=== PATIENT | female | born 1980 | race Caucasian/White ===

== ENCOUNTER 2017-09-23 23:32 | Observation (INO) ==
[2017-09-24] MEDS ORDERED: *HR* Labetalol 100 MG/20 ML MDV IVP ONE (00:16)
--- NOTE | 2017-09-24 00:25 | Emergency Department Note ---
Disposition Clinical Impression: Hypertensive urgency Disposition: Admitted As Inpatient Condition: Good General Adult HPI - General Chief complaint: ED Dizziness Stated complaint: HTN Time Seen by Provider: 09/23/17 23:42 Source: patient Mode of arrival: private vehicle Limitations: no limitations Nursing Notes Reviewed: Yes Vital Signs Reviewed: Yes - History of Present Illness HPI Narrative: 36-year-old female prior history of hypertension off her medications for one month who presents to the ER due to dizziness, nausea. Patient states that she is in between physicians and has not had her medications. She got a new blood pressure cuff today and was checking her blood pressure and noticed that it was over 200 systolic at home. States she started feeling dizzy and having headaches. Also reports nausea during that time. No chest pain or shortness of breath. Unsure what medications she is supposed to be on. No other complaints. Pt Subjective Complaint: Dizziness, high blood pressure, nausea Pain Scale: 0 - Related Data Allergies Allergy/AdvReac Type Severity Reaction Status Date / Time No Known Allergies Allergy Verified 09/23/17 23:33 Review of Systems: As Per HPI Past Medical History - Past Medical History Attestation: Yes The following information was validated with the patient. Source: patient Medical history: Reports: hypertension Psychiatric history: Reports: depression - Social History Smoking Status: Former smoker Smokeless Tobacco Status: No Alcohol use: Reports: none Drug use: Reports: none Physical Exam - General Limitations: no limitations General appearance: alert, in no apparent distress - Head Head exam: atraumatic, normocephalic - Eye Eye exam: Present: normal appearance - ENT ENT exam: normal exam - Neck Neck exam: Present: normal inspection - Chest Chest inspection: Present: normal inspection, symmetric chest wall rise - Respiratory Respiratory exam: Present: normal lung sounds bilaterally - Cardiovascular Cardiovascular exam: Present: normal rhythm, tachycardia, normal heart sounds - Abdominal Exam Abdominal exam: Present: soft, Non-Tender. Absent: tenderness - Extremities Exam Extremities exam: Present: normal inspection, full ROM - Expanded Upper Extremity Exam Shoulder exam: Present: normal inspection, full ROM Arm exam: Present: normal inspection, full ROM Elbow exam: Present: normal inspection, full ROM Forearm/Wrist exam: Present: normal inspection, full ROM Hand exam: Present: normal inspection, full ROM - Expanded Lower Extremity Exam Hip/Pelvis exam: Present: normal inspection, full ROM Upper leg exam: Present: normal inspection, full ROM Knee exam: Present: normal inspection, full ROM Lower leg exam: Present: normal inspection, full ROM Ankle exam: Present: normal inspection, full ROM Foot/toe exam: Present: normal inspection, full ROM - Neurological Exam Neurological exam: Present: alert, other (GCS 15. Nonfocal exam. Moves all extremities equally. Follows commands.) - Skin Skin exam: Present: warm, dry Course Course Narrative: Patient seen and examined. Hypertensive here. Plan for CT head, EKG, labs and antihypertensives. - Reevaluation(s) Reevaluation #1: Discussed results of imaging and labs with the patient. Last blood pressure reading 170/100. We will hold on further decreasing her blood pressure. Agreeable with staying. Vital Signs Temperature 98.1 F 09/23/17 23:33 Pulse Rate 101 09/23/17 23:33 Respiratory Rate 20 09/23/17 23:33 Blood Pressure 222/152 09/23/17 23:33 O2 Sat by Pulse Oximetry 97 09/23/17 23:33 Temperature 97.9 F 09/24/17 05:35 Pulse Rate 79 09/24/17 05:35 Respiratory Rate 12 09/24/17 05:35 Blood Pressure 172/130 09/24/17 05:35 O2 Sat by Pulse Oximetry 96 09/24/17 05:35 Oxygen Delivery Oxygen Delivery Room Air Medical Decision Making - [facility] Narrative Medical decision making narrative: 36-year-old female presents with hypotension, dizziness and dyspnea. Off her medications for 1 month. Profoundly hypertensive on arrival. Improved with 10 mg of IV labetalol. EKG is nonischemic. Chest x-ray unremarkable. CT head with no acute abnormality. Troponin and BNP normal. Admitted to the hospitalist service for hypertensive management. - Lab Data Lab results reviewed: Yes I reviewed the patient's lab results. Result diagrams: 09/24/17 00:14 09/24/17 00:14 Lab Results 09/24/17 09/24/17 09/24/17 Range/Units 00:14 00:14 00:14 WBC 8.6 (4.3-11.1) K/mcL RBC 4.27 (3.82-4.97) M/mcL Hgb 13.0 (11.5-15.4) g/dL Hct 38.0 (35.3-44.9) % MCV 89.0 (83.0-100.0) fL MCH 30.4 (28.0-33.3) pg MCHC 34.2 (31.6-35.5) g/dL RDW 13.2 (11.5-14.5) % Plt Count 297 (140-400) K/mcL MPV 11.3 (9.4-12.4) fL Immature Gran % 0.3 (0-4) % Seg Neutrophils % 55.4 % Lymphocytes % 34.7 % Monocytes % 6.0 % Eosinophils % 3.3 % Basophils % 0.3 % Neutrophils # 4.8 (1.6-8.9) K/mcL Lymphocytes # 3.0 (0.6-4.6) K/mcL Monocytes # 0.5 (0.0-1.3) K/mcL Eosinophils # 0.3 (0.0-0.6) K/mcL Basophils # 0.0 (0.0-0.2) K/mcL Sodium 134 L (136-145) mEq/L Potassium 3.7 (3.5-5.1) mEq/L Chloride 103 (98-107) mEq/L Carbon Dioxide 20 L (23-29) mEq/L BUN 13 (6-20) mg/dL Creatinine 0.64 (0.60-1.20) mg/dL Est GFR ( Amer) > 60 (> 60) Est GFR (Non-Af Amer) > 60 (> 60) BUN/Creatinine Ratio 20 (6-26) Glucose 270 H (70-105) mg/dL Calculated Osmolality 288 (280-300) Calcium 9.1 (8.6-10.3) mg/dL Troponin I < 0.03 (< 0.04) ng/mL B-Natriuretic Peptide 13 (Less than 100) pg/mL - Radiology Data Radiology results reviewed: Yes I reviewed the patient's radiology results. Head CT 09/24/17 00:04 IMPRESSION: No acute intracranial abnormality. D/ / Mitchell Duncan MD / Mitchell Duncan MD Interpreting Provider: Mitchell Duncan MD Chest X-Ray 09/24/17 02:05 IMPRESSION: No significant findings in the chest. D/ / Mitchell Duncan MD / Mitchell Duncan MD Interpreting Provider: Mitchell Duncan MD - EKG Data EKG #1 EKG attestation: Yes I reviewed and interpreted this EKG. EKG results narrative: EKG demonstrates sinus rhythm rate 98 bpm. Right axis deviation. Normal intervals. Normal R-wave progression. No gross ST elevations or depressions. No acute ischemic findings. S.B.A.R. - S.B.A.R. Situation: Demographics, MOA Background: Presenting Complaint, Relevant PMH, Meds, & Allergies Assessment: Vital Signs, Course and respsone to treatment, Exam Concerns, Patient/Family Expectation, Pertinant Lab Results Recommendation: Barrier(s) to disposition, Recommendation based on pending studies, treatments, or consults S.B.A.R. Report Given to: Dr. Davidson Attestation Statement - Attestation Attestation: I examined this patient and my medical decision-making was reviewed with the Resident Physician. I agree with the documented findings, disposition and treatment plan as described except to the extent set forth below. Patient has noncompliance with home antihypertensive regimen. IV labetalol be started. Due to profound hypertension the patient be admitted for further management. No evidence of end organ dysfunction
[2017-09-24 00:27] LABS: Basophils % 0.3 %; Eosinophils # 0.3 K/mcL (0.0-0.6); Eosinophils % 3.3 %; Immature Granulocytes % 0.3 % (0-4); Lymphocytes % 34.7 %; Mean Corpuscular HGB Conc 34.2 g/dL (31.6-35.5); Mean Corpuscular Hemoglobin 30.4 pg (28.0-33.3); Mean Platelet Volume 11.3 fL (9.4-12.4); Monocytes # 0.5 K/mcL (0.0-1.3); Neutrophils # 4.8 K/mcL (1.6-8.9); Platelet Count 297 K/mcL (140-400); Red Blood Count 4.27 M/mcL (3.82-4.97); Red Cell Distribution Width 13.2 % (11.5-14.5); Segmented Neutrophils % 55.4 %
[2017-09-24 00:47] LABS: BUN/Creatinine Ratio 20 (6-26); Blood Urea Nitrogen 13 mg/dL (6-20); Calcium 9.1 mg/dL (8.6-10.3); Carbon Dioxide 20 mEq/L (23-29); Chloride 103 mEq/L (98-107); Glucose 270 mg/dL (70-105); Osmolality,Calculated 288 (280-300); Potassium 3.7 mEq/L (3.5-5.1); Sodium 134 mEq/L (136-145); eGFR For African Americans > 60 (> 60); eGFR For Non-African Americans > 60 (> 60)
[2017-09-24 00:48] LABS: Troponin I < 0.03 ng/mL (< 0.04)
[2017-09-24] MEDS ORDERED: Naloxone 0.4 MG/ML INJ IVP PRN (04:03)
--- NOTE | 2017-09-24 04:16 | Internal Med History&Physical ---
<Gio Izquierdo - Last Filed: 09/24/17 04:08> Date of Encounter: 09/24/17 Time of Encounter: 04:08 Internal Medicine - H&P: HPI Chief complaint: elevated blood pressure Admitted From: Home Plans for Post Hospital Care: Home History of present illness: Ms. Beatty is a 36 year old female w/ pmh of HTN, Gestational DM, t2dm, morbid obesity, HLD, poor medication compliance presents with nausea, sick to stomach, and light headedness and found to have a BP of ~200. Patient first developed HTN 12 years ago when she was , and has HTN since. Patient has not had complications from HTN since diagnosis, and has never had BP this elevated before. Patient was at home last night when she started feeling nauseated, she decided to take her blood pressure and found that her SBP was ~200, which brought her to the ED. Patient was previously on 2 blood pressure medications which she cannot recall. Patient stopped going to her PCP quite a while ago. She ran out of her first BP med 2 months ago, and the 2nd BP med is 1 months ago. She was also on metformin and "some kind of cholesterol pill". Patient was seen with . Patient currently is asymptomatic. Patient denies chest pain, blurry vision, numbness/tingling, change in urination pattern, fever , chills. She is unsure if she had SOB. patient does not drink, and quit smoking 12 years ago. Past Med Surg Social Fam HX - Past Medical History Medical history: hypertension Psychiatric history: depression - Past Surgical History Additional surgical history: tubal - Social History Smoking Status: Former smoker Smokeless Tobacco Status: No Alcohol use: none Drug use: none Internal Medicine - H&P: Meds 3 Allergy/AdvReac Type Severity Reaction Status Date / Time No Known Allergies Allergy Verified 09/23/17 23:33 All Systems PM: A 10-system review of systems was performed and is negative for pertinent findings except as documented above in the HPI. - Constitutional Constitutional: weakness, no chills, no fever(s), no night sweats - EENT Eyes: no change in vision, no discharge, no pain, no photophobia Ears: no ear discharge, no ear pain, no tinnitus Nose, mouth and throat: no dysphagia, no nasal discharge, no neck pain, no sore throat - Cardiovascular Cardiovascular ROS IM: no chest pain, no diaphoresis, no dyspnea, no lightheadedness, no palpitations, no syncope - Respiratory Respiratory: no cough, no dyspnea, no wheezing, no excessive phlegm production - Gastrointestinal Gastrointestinal: no abdominal pain, no diarrhea, no hematemesis, no hematochezia, no melena, no nausea, no vomiting - Genitourinary Genitourinary: no change in urinary stream, no dysuria, no flank pain, no hematuria Additional comments: currently on menstrual cycle. - Musculoskeletal Musculoskeletal ROS IM: no numbness, no tingling - Integumentary Integumentary IM: no rash, no unusual bruising - Neurological Neurological ROS: dizziness, weakness, no confusion, no convulsions, no focal weakness, no numbness, no tingling, no tremor(s) - Hematologic/Lymphatic Hematologic/Lymphatic: no easy bruising - Constitutional Vitals: Temp Pulse Resp BP Pulse Ox 98.1 F 87 18 175/129 98 09/23/17 23:33 09/24/17 03:55 09/24/17 03:55 09/24/17 03:55 09/24/17 03:55 General appearance: Present: cooperative, A&O X 3, pleasant, obese, answers questions appropriately - Head Head exam: Present: atraumatic, normocephalic - Eye Eye exam: Present: PERRL, conjuntiva pink, sclera anicteric Pupils: Present: PERRL - Neck Neck exam general surgery: Present: supple, trachea midline. Absent: lymphadenopathy - Respiratory Respiratory exam: Present: CTAB. Absent: accessory muscle use, rales, rhonchi, wheezes - Cardiovascular Cardiovascular exam: Present: RRR. Absent: diastolic murmur, gallop, JVD, rubs , systolic murmur, tachycardia - GI/Abdominal GI/Abdominal exam: Present: normal bowel sounds, soft, no peritoneal signs. Absent: distended, hepatomegaly, mass, splenomegaly, tenderness - Extremities Exam Extremities exam: Present: warm, radial pulses palpable and symmetrical. Absent : calf tenderness, cyanotic, pedal edema - Neurological Exam Neurological exam: Present: alert, CN II-XII intact, oriented X3, no focal deficits. Absent: pronater drift, facial droop, speech deficit - Skin Skin exam: Present: dry, intact Internal Med - H&P Results - Labs CBC & Chem 7: 09/24/17 00:14 09/24/17 00:14 Labs: Short CBC 09/24/17 Range/Units 00:14 WBC 8.6 (4.3-11.1) K/mcL Hgb 13.0 (11.5-15.4) g/dL Hct 38.0 (35.3-44.9) % Plt Count 297 (140-400) K/mcL Neutrophils # 4.8 (1.6-8.9) K/mcL BMP 09/24/17 00:14 Sodium 134 L Potassium 3.7 Chloride 103 Carbon Dioxide 20 L BUN 13 Creatinine 0.64 Glucose 270 H Calcium 9.1 Cardiac Enzymes 09/24/17 Range/Units 00:14 Troponin I < 0.03 (< 0.04) ng/mL - Impressions ITS Impressions Head CT 09/24/17 00:04 IMPRESSION: No acute intracranial abnormality. D/ / Mitchell Duncan MD / Mitchell Duncan MD Interpreting Provider: Mitchell Duncan MD Chest X-Ray 09/24/17 02:05 IMPRESSION: No significant findings in the chest. D/ / Mitchell Duncan MD / Mitchell Duncan MD Interpreting Provider: Mitchell Duncan MD - Assessment and plan (1) Hypertensive urgency Current Visit: Yes Status: Acute Assessment and plan: poor Rx compliance. Patient had symptoms of nausea, dizziness, light headedness , and feeling sick to stomach. Will start ACEI/hctz PO. Goal SBP in 1st 24 hours is 160 or MAP decrease 25% in first 6 hours. will need to setup outpatient PCP. No signs of end organ damage at this point. (2) Hypertension Current Visit: Yes Status: Acute Assessment and plan: see above Qualifiers: Qualified Code(s): I10 - Essential (primary) hypertension (3) Diabetes Current Visit: Yes Status: Acute Assessment and plan: ordered a1c, and urine to screen for protein/glucose. Patient was previously on metformin. BG was elevated on admission. Will need Rx prior to discharge. start low SSI. Qualifiers: Qualified Code(s): E11.9 - Type 2 diabetes mellitus without complications (4) Hyperlipidemia Current Visit: Yes Status: Acute Assessment and plan: patient reports history of high cholesterol and was on a medication. ordered lipid panel. will most likely need Rx for statin prior to discharge. Qualifiers: Qualified Code(s): E78.5 - Hyperlipidemia, unspecified (5) Obesity Current Visit: Yes Status: Acute Assessment and plan: advised patient on benefits of weight loss. too be follow up outpatient Qualifiers: Qualified Code(s): E66.9 - Obesity, unspecified - Time Spent With Patient Total time spent is greater than 50% in coordination of care (as documented) at patient's floor/unit and/or counseling patient: <Megan Cortez - Last Filed: 09/24/17 04:42> Date of Encounter: 09/24/17 Time of Encounter: 04:00 Internal Medicine - H&P: HPI History of present illness: Ms. Beatty is a 36 year old female All Systems PM: A 10-system review of systems was performed and is negative for pertinent findings except as documented above in the HPI. - Constitutional Vitals: Temp Pulse Resp BP Pulse Ox 98.1 F 87 18 175/129 98 09/23/17 23:33 09/24/17 03:55 09/24/17 03:55 09/24/17 03:55 09/24/17 03:55 Internal Med - H&P Results - Labs CBC & Chem 7: 09/24/17 00:14 09/24/17 00:14 - Attending Attestation I examined this patient and my medical decision-making was reviewed with the Resident Physician, Gio Izquierdo. I agree with the documented findings, disposition and treatment plan as described with any changes as documented below. 36-year-old female patient with history of diabetes, hypertension, hyperlipidemia who has not been taking medications for about a month presented to the ER with complaints of nausea, lightheadedness along with some shortness of breath. She reports that she checked her blood pressure at home and was found to have systolic blood pressure greater than 200. She decided to come to the ER. She denies any chest pain. No palpitations. She was previously on 2 different medications for hypertension but has not been taking them for at least a month. She is also not taking her medications for diabetes and hyperlipidemia. Patient is awake and alert. Heart sounds are normal. Breath sounds are normal. No pedal edema. Blood glucose is 270. Chest x-ray shows pulmonary vascular congestion and small left-sided pleural effusion with underlying COPD. Hypertensive urgency: Monitor blood pressure. Start patient on lisinopril, hydrochlorothiazide. We will use intravenous medications if blood pressure remains greater than 200. Target systolic blood pressure of less than 180. Pulmonary congestion and possible CHF. We will get 2-D echocardiogram. Check BNP. We will give IV Lasix for now. Nausea: We will treat symptomatically. - Assessment and plan (1) Hypertensive urgency Current Visit: Yes Status: Acute (2) Hypertension Current Visit: Yes Status: Acute Qualifiers: Qualified Code(s): I10 - Essential (primary) hypertension (3) Diabetes Current Visit: Yes Status: Acute Qualifiers: Diabetes mellitus type: type 2 Diabetes mellitus manager long term care insulin use: without halfway use Diabetes mellitus complication status: with hyperglycemia Qualified Code(s): E11.65 - Type 2 diabetes mellitus with hyperglycemia (4) Hyperlipidemia Current Visit: Yes Status: Acute Qualifiers: Qualified Code(s): E78.5 - Hyperlipidemia, unspecified (5) Obesity Current Visit: Yes Status: Acute Qualifiers: Qualified Code(s): E66.9 - Obesity, unspecified - Time Spent With Patient Total time spent is greater than 50% in coordination of care (as documented) at patient's floor/unit and/or counseling patient:
[2017-09-24] MEDS ORDERED: Dextrose Gel 15 GM/37.5 ML TUBE PO PRN ×2 (04:28)
[2017-09-24] MEDS ORDERED: *HR* Dextrose 50 % in Water (Syg) 50 ML SYRINGE IVP PRN (04:28)
[2017-09-24] MEDS ORDERED: D5% in Water 1,000 ML IVC PRN (04:28)
[2017-09-24] MEDS ORDERED: Furosemide 40 MG/4 ML VIAL IVP ONE (04:42)
[2017-09-24 07:16] LABS: Estimated Average Glucose 258 mg/dl; Hemoglobin A1C 10.6 %
[2017-09-24 08:28] LABS: Bilirubin,Urine Negative (Negative); Blood,Urine Large (Negative); Clarity,Urine Cloudy (Clear); Glucose,Urine (UA) 100 mg/dL (Normal); Ketones,Urine Negative (Negative); Leukocyte Esterase,Urine Trace (Negative); Nitrite,Urine Negative (Negative); PH,Urine 6.5 pH Units (5.0-8.0); Protein,Urine 30 mg/dL (Neg-Trace); Specific Gravity,Urine 1.009 (1.010-1.025); Urobilinogen,Urine Normal (Normal)
[2017-09-24] MEDS: Insulin LISPRO 300 UNITS/3 ML VIAL SQ SCH ×3 (08:33→16:59)
[2017-09-24 08:36] LABS: Color,Urine Red (Yellow)
[2017-09-24 08:37] LABS: RBC,Urine TNTC per hpf (0-3)
--- NOTE | 2017-09-24 09:31 | Event Note ---
Date of Encounter: 09/24/17 Time of Encounter: 09:26 S: Patient had no acute events overnight. BP now systolic 160s. She states that nausea, SOB, and dizziness resolved. She denies fever, chills, dysuria, chest pain, SOB, or abdominal pain. She has no complaints at this time. She wants to find a new PCP in [place], [place]. O: Gen - Awake, alert, well-nourished, no acute distress HEENT - NCAT, PERRLA, EOMI, hearing grossly intact, oropharynx benign CV - RRR, normal S1 and S2, no M/R/G, no BLE edema Resp - Normal WOB, CTAB, no W/R/R GI - Soft, NT/ND, no masses, normal bowel sounds, no HSP Skin - Warm, dry, no rashes/lesions/ulcers Psych - Normal mood and affect, no depression or anxiety A/P: 1) HTN Urgency - BP improved. Continue zestoretic. Monitor vitals closely. SW consulted to set up new PCP follow up. 2) DM Type II - On low dose SSI. Will likely need metformin and PCP follow up at discharge. 3) HLD - Lipid panel in AM. Consider restarting statin.
[2017-09-24] MEDS: *HR* Enoxaparin 40 MG/0.4 ML SYRINGE SQ SCH (16:59)
[2017-09-24] MEDS ORDERED: Insulin LISPRO 300 UNITS/3 ML VIAL SQ SCH (21:00)
[2017-09-25 02:40] LABS: Basophils % 0.4 %; Eosinophils # 0.3 K/mcL (0.0-0.6); Eosinophils % 3.5 %; Hematocrit 40.6 % (35.3-44.9); Hemoglobin 13.7 g/dL (11.5-15.4); Immature Granulocytes % 0.4 % (0-4); Lymphocytes # 3.1 K/mcL (0.6-4.6); Mean Corpuscular HGB Conc 33.7 g/dL (31.6-35.5); Mean Corpuscular Hemoglobin 29.9 pg (28.0-33.3); Mean Corpuscular Volume 88.6 fL (83.0-100.0); Mean Platelet Volume 11.3 fL (9.4-12.4); Monocytes # 0.5 K/mcL (0.0-1.3); Monocytes % 5.7 %; Neutrophils # 4.9 K/mcL (1.6-8.9); Platelet Count 305 K/mcL (140-400); Red Blood Count 4.58 M/mcL (3.82-4.97); Red Cell Distribution Width 13.4 % (11.5-14.5)
[2017-09-25 02:53] LABS: Chol/HDL Ratio 7.4 (0-4.9)
[2017-09-25 02:54] LABS: BUN/Creatinine Ratio 29 (6-26); Blood Urea Nitrogen 18 mg/dL (6-20); Calcium 9.2 mg/dL (8.6-10.3); Carbon Dioxide 24 mEq/L (23-29); Chloride 101 mEq/L (98-107); Glucose 236 mg/dL (70-105); Osmolality,Calculated 288 (280-300); Potassium 3.9 mEq/L (3.5-5.1); Sodium 134 mEq/L (136-145); eGFR For African Americans > 60 (> 60); eGFR For Non-African Americans > 60 (> 60)
[2017-09-25] MEDS: *HR* Enoxaparin 40 MG/0.4 ML SYRINGE SQ SCH (05:36)
[2017-09-25] MEDS ORDERED: *HR* Metformin 500 MG TABLET PO SCH (08:00)
--- NOTE | 2017-09-25 08:02 | Discharge Summary ---
- NOTES TO OUTPATIENT PROVIDER Notes to Outpatient Provider: Follow up with new PCP in 2-3 days after discharge. Recheck BP and BMP (Type II DM) at that time. Date of Encounter: 09/25/17 Time of Encounter: 08:00 - Discharge Diagnosis (1) Hypertensive urgency Priority: Primary Status: Resolved (2) Hypertension Priority: Secondary Status: Chronic Qualifiers: Qualified Code(s): I10 - Essential (primary) hypertension (3) Diabetes Priority: Secondary Status: Acute Qualifiers: Diabetes mellitus type: type 2 Diabetes mellitus jail insulin use: without superintendent container terminal use Diabetes mellitus complication status: with hyperglycemia Qualified Code(s): E11.65 - Type 2 diabetes mellitus with hyperglycemia (4) Hyperlipidemia Priority: Secondary Status: Acute Qualifiers: Qualified Code(s): E78.5 - Hyperlipidemia, unspecified (5) Obesity Priority: Secondary Status: Chronic Qualifiers: Qualified Code(s): E66.9 - Obesity, unspecified Hospital course: Ms. Beatty is a 36 year old female admitted for hypertensive urgency. She was admitted for observation to general medical floor with telemetry. She was started on zestoretic. Blood pressure normalized the next day, and she was asymptomatic. Lipid panel came back with elevated LDL, so she was started on lipitor. Blood glucose have been ranging in the 200s, so she was started on metformin. SW was consulted to help patient find new PCP. She will follow up with PCP in 2-3 days after discharge. Blood pressure and BMP (blood glucose) can be rechecked at that time. Patient has met maximum benefit of this hospitalization and will be discharged home in stable condition. Discharge discussed with: patient, nurse - Time Spent with Patient Total time spent providing and/or coordinating discharge services: Less than 30 minutes - Discharge Medications Prescriptions: Atorvastatin [Lipitor] 40 mg PO HS 14 Days #14 tablet Lisinopril-HCTZ 10-12.5 [Prinzide 10-12.5] 1 each PO DAILY 14 Days #14 tablet Metformin HCl 1,000 mg PO BIDWM 14 Days #28 tablet Home Medications: Atorvastatin [Lipitor] 40 mg PO HS 14 Days #14 tablet 09/25/17 [Rx] Lisinopril-HCTZ 10-12.5 [Prinzide 10-12.5] 1 each PO DAILY 14 Days #14 tablet [Rx] Metformin HCl 1,000 mg PO BIDWM 14 Days #28 tablet 09/25/17 [Rx] Allergies/Adverse Reactions: 3 Allergy/AdvReac Type Severity Reaction Status Date / Time No Known Allergies Allergy Verified 09/23/17 23:33 Date of admission: 09/24/17 04:05 Primary care physician: PCP NONE Consults: 09/24/17 09:23 Consult to Administrative Office Manager [CONS] Routine Reason for SW Consult: Patient needs new PCP in [place], [place]. Please provide her with a list of PCPs in area and set up follow up appointment. Thanks. Discharging clinician: Tanner Murphy Anticipated date of discharge: 09/25/17 - Constitutional Vitals: Temp Pulse Resp BP Pulse Ox 98.5 F 87 16 128/86 98 09/25/17 07:00 09/25/17 07:00 09/25/17 07:00 09/25/17 07:00 09/25/17 07:00 General appearance: Present: cooperative, A&O X 3, pleasant, obese, answers questions appropriately - Respiratory Respiratory exam: Present: CTAB. Absent: accessory muscle use, rales, rhonchi, wheezes Additional comments: Normal WOB - Cardiovascular Cardiovascular exam: Present: RRR, +S1, +S2. Absent: diastolic murmur, gallop, rubs, systolic murmur Additional comments: No BLE edema - GI/Abdominal GI/Abdominal exam: Present: normal bowel sounds, soft. Absent: distended, hepatomegaly, mass, splenomegaly, tenderness - Psychiatric Psychiatric exam: Present: normal affect, normal mood. Absent: agitated, anxious, depressed - Skin Skin exam: Present: dry, intact, warm. Absent: cyanosis, rash - Patient Status Disposition: Home, Self-Care Condition: Good Functional capacity at discharge: independent ambulation Overall status at discharge: patient is progressing back to baseline - Discharge Instructions Follow Up With: NONE,PCP [Primary Care Provider] - Additional Instructions: Follow up with new PCP in 2-3 days after discharge. Recheck BP and BMP (Type II DM) at that time. - Diet and Activity Activity: resume usual activities as tolerated Diet: diabetic diet, low fat, low cholesterol, low salt diet, other (Cardiac Diet)
[2017-09-25] MEDS: Insulin LISPRO 300 UNITS/3 ML VIAL SQ SCH ×2 (08:11→12:07)
[2017-09-25 11:27] VITALS: BP 126/78
--- NOTE | 2017-09-25 17:36 | Electrocardiograph Report ---
[address] [place], [place] [address] Test Date: 2017-09-24 Pat Name: Monik Beatty Department: 103 Room: [facility] Gender: F [employer]: JACKLYN : 1980 Requested By: Chad Patricio Order Number: [id number] Reading MD: Princess Bedoya Measurements Intervals Russell Rate: 98 P: 21 WY: 152 QRS: -2 QRSD: 98 T: 13 QT: 371 QTc: 426 Interpretive Statements SINUS RHYTHM Electronically Signed On 09-25-2017 17:35:00 EDT by Princess Bedoya
== END 2017-09-25 14:49 | disposition home or self-care (01) ==
LOC: EMEROO 23:32 → 3NENU 23:32 → MERGE 09-24 04:05 → 3NENU 09-24 04:45
PROVIDERS: ADMIT Internal Medicine; ATTEND Internal Medicine